=== PATIENT | female | born 1980 | race Hispanic/Latino ===

== ENCOUNTER 2023-12-20 09:09 | Day surgery (SDC) | payer OTHER ==
[~2023-12-20] VITALS: Ht 165.1 cm; Wt 78.0 kg
[2023-12-20] VITALS (10 sets, daily range): BP systolic 102–128; BP diastolic 54–69; PULSE 60–85; RESP 15–16
[~2023-12-20 09:09] MED LIST: VILA40TA PO
[2023-12-20] MEDS: 0.9%NACL 1000ML 1,000 ML IV ONE (09:29)
[2023-12-20] MEDS ORDERED: proPOFol 10 MG/ML 20ML VIAL IV ONE (11:00)
== END 2023-12-20 12:55 | disposition home or self-care (01) ==
LOC: ENDO 09:09 → DAH 09:09 → ENDO 12:55
PROVIDERS: ATTEND Internal Medicine Gastroenterology
DX: Z12.11 Encounter for screening for malignant neoplasm of colon (principal); D12.8 Benign neoplasm of rectum; F41.9 Anxiety disorder, unspecified; Z98.890 Other specified postprocedural states; Z79.899 Other long term (current) drug therapy
CPT/HCPCS: 81025; 45385; J7030 ×2; J2704; A4620; A4215; A4223; A7002; A4222; A4221; A4663; A4606; J3490